=== PATIENT | female | born 1955 | race Caucasian/White ===

== ENCOUNTER 2017-08-30 12:20 | Day surgery (SDC) | payer OTHER ==
[2017-08-29 10:22] VITALS: BMI 35.4
[2017-08-30] MEDS ORDERED: Lidocaine 1% PF 5 ML VIAL ONE (14:28)
[2017-08-30] MEDS ORDERED: PROPOFOL 200 MG/20 ML VIAL ONE (14:28)
--- NOTE | 2017-08-30 16:52 | OP ---
PRIMARY CARE PHYSICIAN: None. DATE OF PROCEDURE: 08/30/2017 TITLE OF PROCEDURE: Colonoscopy with snare polypectomy. PREOPERATIVE DIAGNOSES: 1. Personal history of benign colon polyps. 2. Family history of colon cancer in her father, who was diagnosed in his early 50s. POSTOPERATIVE DIAGNOSES: 1. Exam to cecum; good bowel preparation. 2. Mild sigmoid diverticulosis. 3. 8-9 mm sessile polyp in the cecum, opposite the ileocecal valve, removed by snare electrocautery. 4. Small internal hemorrhoids. 5. Otherwise normal colonoscopy. PROCEDURE IN DETAIL: Written informed consent was obtained. The patient was brought to the endoscop y suite. Total intravenous anesthesia was administered by Dr. Landon Cooley and associates. The kirsten ent was placed in the left lateral decubitus position. A digital rectal exam was performed that was unremarkable. A Pentax video colonoscope was inserted through the anal canal and advanced under dire ct visualization to the cecum. Position in the cecum was verified by clear identification of the butch endiceal orifice in the ileocecal valve. The quality of the bowel preparation was good. Each colon segment was examined carefully as the colonoscope was slowly withdrawn from the cecum. In the cecum, opposite the ileocecal valve, an 8 mm sessile polyp was identified and removed by snare electrocaute ry. Good hemostasis was verified post-polypectomy. A small rim of erythema develop post-polypectomy at the site, but there was no evidence of oozing or perforation. No other synchronous polyps were i dentified. In the sigmoid, a few diverticular orifices (small) were identified. There was no eviden ce of diverticular bleeding or infection. In the rectum, a retroflexed view demonstrated small inter nal hemorrhoids that were not bleeding. The colon was decompressed as the colonoscope was removed fr om the patient. She was transferred to the day stay surgery area for post-procedure monitoring. The re were no immediate complications. RECOMMENDATIONS: 1. Await pathology results and ask patient to call me in 1 week for pathology results. 2. Pending pathology results, recommend repeat colonoscopy in 3 years. 3. Resume previous diet and medications. 4. Follow up in Gastro[facility]ology Clinic as needed.
== END 2017-08-30 14:10 | disposition home or self-care (01) ==
LOC: SDC 12:20
PROVIDERS: ATTEND Internal Medicine Gastroenterology
PROC: 0DBH8ZX Excision of Cecum, Via Natural or Artificial Opening Endoscopic, Diagnostic (ICD-10-PCS; principal; 2017-08-30)
DX: Z12.11 Encounter for screening for malignant neoplasm of colon (principal); K63.5 Polyp of colon; K57.30 Diverticulosis of large intestine without perforation or abscess without bleeding; K64.8 Other hemorrhoids; F17.210 Nicotine dependence, cigarettes, uncomplicated; Z79.899 Other long term (current) drug therapy; Z98.890 Other specified postprocedural states; Z86.010 Personal history of colon polyps; Z80.0 Family history of malignant neoplasm of digestive organs
CPT/HCPCS: 88305; J2001; J2704

== ENCOUNTER 2017-12-04 12:38 | Observation (INO) | payer OTHER ==
[2017-12-04 13:18] LABS: #Basophils 0.1 thou/uL (0.0-0.2); #Eosinphils 0.2 thou/uL (0.0-0.7); #Lymphocytes 2.1 thou/uL (1.20-3.40); #Monocytes 0.4 thou/uL (0.11-0.59); #Neutrophils 3.6 thou/uL (1.40-6.50); %Basophils 1.1 % (0.0-1.0); %Eosinophils 2.5 % (0.0-10.0); %Lymphocytes 33.1 % (21.0-51.0); %Monocytes 6.3 % (0.0-10.0); Hemoglobin 13.7 g/dL (12.0-16.0); Mean Corpuscular HGB CONC 32.8 g/dL (32.0-36.0); Mean Corpuscular Hemoglobin 30.2 pg (27.0-31.0); Mean Platelet Volume 7.9 fL (7.4-10.4); Platelet Count 171 thou/uL (130-400); RBC Distribution Width 13.3 % (11.5-14.5); Red Blood Cell (RBC) Count 4.53 mill/uL (4.20-5.40); White Blood Cell (WBC) Count 6.3 thou/uL (4.8-10.8)
--- NOTE | 2017-12-04 13:36 | RAD ---
CHEST ONE VIEW: History: Chest pain. Comparison: None. FINDINGS: Lungs are clear. No pneumothorax or effusion. Cardiac silhouette and mediastinal contours within norm al limits. Mild degenerative disease of the acromioclavicular joints. IMPRESSION: No acute intrathoracic abnormality. POS: [facility]
[2017-12-04 13:46] LABS: Troponin I Less than 0.010 ng/mL (< 0.028)
[2017-12-04 13:47] LABS: ALT (SGPT) 20 U/L (8-55); AST (SGOT) 20 U/L (5-34); Alkaline Phosphatase 87 U/L (40-150); Anion Gap 14 mmol/L (10-20); BUN (Urea Nitrogen) 15 mg/dL (9.8-20.1); Bilirubin, Total 0.5 mg/dL (0.2-1.2); CK (CPK) 52 U/L (29-168); Calc. Creatinine Clearance 0 mL/min (70-130); Carbon Dioxide 20 mmol/L (23-31); Chloride 106 mmol/L (98-107); Estimated GFR-MDRD 73; Globulin 3.4 g/dL (2.4-3.5); Glucose 113 mg/dL (80-115); Lipase 47 U/L (8-78); Potassium 4.1 mmol/L (3.5-5.1); Protein, Total 7.4 g/dL (6.0-8.3); Sodium 136 mmol/L (136-145)
[2017-12-04 17:15] LABS: Troponin I Less than 0.010 ng/mL (< 0.028)
[2017-12-04] MEDS ORDERED: Acetaminophen 325 MG TAB PO PRN (18:58)
[2017-12-04 19:19] VITALS: BMI 33.5
[2017-12-04 20:01] LABS: Troponin I Less than 0.010 ng/mL (< 0.028)
[2017-12-04] MEDS ORDERED: cloNIDine 0.1 MG TAB PO PRN (20:18)
[2017-12-04] MEDS ORDERED: Ondansetron ODT 4 MG TAB PO PRN (20:18)
[2017-12-04] MEDS ORDERED: Acetaminophen 500 MG TAB PO PRN (20:18)
[2017-12-04] MEDS ORDERED: Ondansetron HCl/PF 4 MG/2 ML Vial IVP PRN (20:18)
[2017-12-04] MEDS ORDERED: hydrALAZINE 20 MG/ML VIAL SLOW IVP PRN (20:18)
[2017-12-04] MEDS ORDERED: Pravastatin Sodium 40 MG TAB PO SCH (21:00)
[2017-12-04] MEDS: Famotidine 20 MG TAB PO SCH (21:36)
[2017-12-04 23:17] LABS: Troponin I Less than 0.010 ng/mL (< 0.028)
--- NOTE | 2017-12-05 00:22 | HP ---
DATE OF ADMISSION: 12/04/2017 PRIMARY CARE PHYSICIAN: Renetta womack. PRIMARY GLOVE FACTORY SEWER: Pete Olmedo M.D. CHIEF COMPLAINT: Chest pain. HISTORY OF PRESENT ILLNESS: This is a 62-year-old female who presents to [facility] Emergency Department complaining of chest pain while at work today. 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 The patient denied any trauma, injury, fever, chills, cough, congestion or strenuous activity. The patient was walking out of the bathroom when the sympto ms began. After approximately 10 minutes, the pain resolved; however, the patient does report some a ssociated nausea and worsening with deep inspiration. The patient states she has had several episode s of diarrhea over the last several days, but no hematochezia. The patient admits to doing approxima tely 20 loads of laundry over the weekend prior to this evaluation, but no other change to her activi ty level. The patient initially rated the pain 8/10 when it was occurring, resolving in 10 minutes. The patient states her last stress test was approximately 2-3 years prior to this evaluation and nor mal. The patient was recently placed on losartan/HCTZ by her foreclosure home inspector for better blood pressure control. The patient denies any other recent change to her chronic medication regimen. The patient denies taking any anticoagulation or aspirin. In the emergency room, the patient underwent general e valuation including chest imaging showing no acute infiltrate. EKG was unremarkable and the patient received aspirin 324 mg x1 dose. The patient was referred to the observation unit for evaluation. PAST MEDICAL HISTORY: 1. Hypertension. 2. Irregular heartbeat. 3. Hyperlipidemia. PAST SURGICAL HISTORY: 1. Status post cholecystectomy. 2. Status post left breast lumpectomy. CURRENT MEDICATIONS: 1. Bisoprolol fumarate 5 mg p.o. at bedtime. 2. Losartan/HCTZ 100/12.5 mg 1 tab p.o. daily. 3. Pravachol 40 mg p.o. at bedtime. ALLERGIES: No known drug allergies. FAMILY HISTORY: Positive for hypertension. SOCIAL HISTORY: Resides in [place], [place]. . Accompanied by multiple family members. No curr ent alcohol, tobacco or illicit drug use. REVIEW OF SYSTEMS: The following complete review of systems was negative, unless otherwise mentioned in the HPI or below: Constitutional: Weight loss or gain, ability to conduct usual activities. Sk in: Rash, itching. Eyes: Double vision, pain. ENT/Mouth: Nose bleeding, neck stiffness, pain, te nderness. Cardiovascular: Palpitations, dyspnea on exertion, orthopnea. Respiratory: Shortness of breath, wheezing, cough, hemoptysis, fever or night sweats. Gastrointestinal: Poor appetite, abdom inal pain, heartburn, nausea, vomiting, constipation, or diarrhea. Genitourinary: Urgency, frequenc y, dysuria, nocturia. Musculoskeletal: Pain, swelling. Neurologic/Psychiatric: Anxiety, depressio n. Allergy/Immunologic: Skin rash, bleeding tendency. Otherwise negative except as stated per HPI. PHYSICAL EXAMINATION: VITAL SIGNS: Currently, blood pressure 166/94, pulse 55, respiratory rate is 20, temperature 97.6 de grees Fahrenheit, O2 saturation 98% on room air. GENERAL APPEARANCE: This is a 62-year-old female, alert and oriented x3, pleasant, convers ant and in no acute distress. HEENT: Pupils are equal, round and reactive to light and accommodation. Extraocular muscles are int act. No scleral icterus. No conjunctival injection. Nares patent. OP is clear. Teeth in good rep air. NECK: Supple. No cervical adenopathy, no thyromegaly, no carotid bruits, no JVD appreciated. Cervi karthik spine with full active and passive range of motion. No meningeal signs appreciated. CHEST: Lungs are clear to auscultation bilaterally. CARDIOVASCULAR: S1, S2 without noted murmur, rub or gallop. ABDOMEN: Rounded, soft, nontender, nondistended. Bowel sounds are positive in all four quadrants. EXTREMITIES: Warm and dry with fair turgor. No clubbing, cyanosis or asymmetric edema appreciated. Pulses palpable distally at the dorsalis pedis, posterior tibial and popliteal arteries bilaterally. Capillary refill less than 2 seconds. NEUROLOGIC: Cranial nerves II-XII are grossly intact. No focal or lateralizing signs appreciated. PERTINENT LABORATORY AND X-RAY FINDINGS: Complete metabolic profile within normal limits. Troponin I negative x2. CBC within normal limits. EKG dated 12/04/2017 by my interpretation shows sinus cecilia ycardia with heart rates in the upper 50s. Attenuated R waves noted in the precordial leads. Normal axis. No acute ST-T wave changes appreciated. ASSESSMENT AND PLAN: 1. Chest pain. The patient will be observed on the telemetry unit. We will continue cardiac biomar kers. Plan for exercise treadmill stress test in the a.m. Hold beta shefali therapy. Check fasting lipid profile in the a.m. Continue aspirin 325 mg daily. 2. Hypertension. Resume home antihypertensive regimen including losartan/HCTZ. Hold bisoprolol pen ding treadmill stress test. 3. Hyperlipidemia. Continue Pravachol 40 mg p.o. at bedtime. Check fasting lipid profile in the a. m. 4. Back pain. Appears musculoskeletal in origin. Symptomatic and supportive management. 5. Prophylaxis. Sequential compression devices while in bed. Pepcid 20 mg p.o. b.i.d. 6. Code status is full. Surrogate medical decision maker is the patient's spouse.
[2017-12-05 05:02] LABS: Anion Gap 12 mmol/L (10-20); BUN (Urea Nitrogen) 18 mg/dL (9.8-20.1); Calc. Creatinine Clearance 97 mL/min (70-130); Calcium 8.7 mg/dL (7.8-10.44); Carbon Dioxide 24 mmol/L (23-31); Cardiac Risk 5.1 (Less than 4.5); Chloride 108 mmol/L (98-107); Cholesterol 122 mg/dl (< 200 Desired); Estimated GFR-MDRD 74; Glucose 105 mg/dL (80-115); HDL Cholesterol 24 mg/dL (>60 Neg Risk); LDL Cholesterol, Calculated 72 mg/dL; Potassium 3.8 mmol/L (3.5-5.1); Sodium 140 mmol/L (136-145); Triglycerides 130 mg/dL (Less than 150)
[2017-12-05 05:32] LABS: Eosinophils 3 % (0-10); Hemoglobin 13.2 g/dL (12.0-16.0); Lymphocytes 38 % (21-51); MDiff Complete? YES; Mean Corpuscular HGB CONC 33.6 g/dL (32.0-36.0); Mean Corpuscular Hemoglobin 30.7 pg (27.0-31.0); Mean Corpuscular Volume 91.6 fL (78.0-98.0); Mean Platelet Volume 7.9 fL (7.4-10.4); Monocytes 5 % (0-10); Neutrophil 53 % (42-75); PLT Morphology Comment Appears Adequate; Platelet Count 149 thou/uL (130-400); RBC Distribution Width 13.3 % (11.5-14.5); RBC Morphology Normal; Reactive Lymphocytes 1 % (0-10); Red Blood Cell (RBC) Count 4.29 mill/uL (4.20-5.40); White Blood Cell (WBC) Count 7.5 thou/uL (4.8-10.8)
[2017-12-05 07:50] VITALS: TEMP 97.5
[2017-12-05] MEDS ORDERED: Losartan 25 MG TAB PO SCH (09:00)
[2017-12-05] MEDS ORDERED: Hydrochlorothiazide 25 MG TAB PO SCH (09:00)
[2017-12-05] MEDS ORDERED: Aspirin 325 MG TAB PO SCH (09:00)
[2017-12-05] MEDS: Famotidine 20 MG TAB PO SCH (13:09)
[2017-12-05 13:13] VITALS: BP 126/81
--- NOTE | 2017-12-05 15:59 | NM ---
MYOCARDIAL PERFUSION EVALUATION: INDICATION: Chest pain. RADIOPHARMACEUTICAL: 33 mCi technetium-99m sestamibi IV with stress and 10.2 mCi technetium-99m sestamibi IV with rest. FINDINGS: When comparing the rest and stress images, no reversible myocardial perfusion defect is evident. Ther e is normal wall motion and thickening. LVEF estimated at 85%. IMPRESSION: Normal myocardial perfusion evaluation. No scintigraphic evidence to suggest reversible myocardial is chemia. POS: [facility]
--- NOTE | 2017-12-05 23:33 | DIS ---
DATE OF ADMISSION: 12/04/2017 DATE OF DISCHARGE: 12/05/2017 PRIMARY CARE PROVIDER: None. ADMITTING DIAGNOSES: 1. Chest pain. 2. Likely musculoskeletal etiology for chest pain. DISCHARGE DIAGNOSIS: Bradycardia. CONDITION OF PATIENT ON THE DAY OF DISCHARGE: Stable. I assessed Ms. Kang on the day of discharge . She denies any chest pain. PHYSICAL EXAMINATION: VITAL SIGNS: Stable. HEART: S1 and S2 are heard, regular. LUNGS: Clear to auscultation bilaterally. DISCHARGE MEDICATIONS: Bisoprolol dose has been decreased to 2.5 mg daily. She is also being discha rged on her other home medications of pravastatin 40 mg at bedtime and losartan/hydrochlorothiazide 1 00/12.5 mg daily. HOSPITAL COURSE: Ms. Kang is a pleasant 62-year-old lady who was admitted to [facility] on 12/04/2017 for chest pain. Please refer to Dr. Argueta's history and physical note date d 12/04/2017 for further details. She was monitored on telemetry. She had episodes of bradycardia a nd her bisoprolol dose has been decreased. Preliminary report of nuclear stress test indicates that it was a normal study. Official report is pending at the time of this dictation. D-dimer was 0.44, with the upper limit of normal at 0.43. Her chest pain resolved, and she is being discharged home in a stable condition. She has been advised to check her blood pressure and heart rate 3 times a day and show the readings t o her primary care provider. Many thanks for allowing me to participate in your patient's care. Please feel free to contact me wi th any questions or concerns. DISCHARGE DESTINATION: Home.
== END 2017-12-05 15:51 | disposition home or self-care (01) ==
LOC: ERS 12:38 → 2SW 16:45 → UNDOADMOB 18:45
PROVIDERS: ADMIT Family Medicine; ATTEND Family Medicine
DX: R07.89 Other chest pain (principal); R00.1 Bradycardia, unspecified; R19.7 Diarrhea, unspecified; I10 Essential (primary) hypertension; E78.5 Hyperlipidemia, unspecified; Z79.899 Other long term (current) drug therapy
CPT/HCPCS: 36415; 71045; 78452; 80048; 80053; 80061; 82550; 82553; 83690; 84484; 85007; 85025; 85027; 85379; 93005; 93017; 94760; A9500; G0378